=== PATIENT | female | born 1950 | race American Indian/Alaskan Native ===

== ENCOUNTER 2016-11-19 08:55 | Outpatient (CLI) | payer MEDICARE ==
--- NOTE | 2016-11-19 09:53 | Mammography Report ---
Bilateral mammogram: No previous studies are available. CAD study utilized. Findings: Predominance of adipose tissue bilaterally. No mass or microcalcification. Benign axillary nodes. Impression: Benign findings. Annual followup recommended. BI-RADS CATEGORY: 2 = Benign ACR BI-RADS MAMMOGRAPHIC CODES: 0 = Needs additional imaging evaluation; 1 = Negative; 2 = Benign; 3 = Probably benign; 4 = Suspicious; 5 = Malignant; 6 = Known biopsy-proven malignancy COMMENT: 1. Dense breast tissue, i.e., adenosis, fibrocystic changes, etc., may obscure an underlying neoplasm. 2. Approximately 10% of cancers are not detected with mammography. 3. A negative mammography report should not delay biopsy if a clinically suspicious mass is present. COMMENT: Patient follow-up letters are generated in [employer].
== END 2016-11-19 08:56 | disposition home or self-care (01) ==
LOC: MAMMO 08:55
PROVIDERS: ATTEND Internal Medicine
DX: Z12.31 Encounter for screening mammogram for malignant neoplasm of breast (principal)
CPT/HCPCS: 77067; G0202

== ENCOUNTER 2019-10-12 09:01 | Outpatient (CLI) | payer MEDICARE ==
--- NOTE | 2019-10-12 09:47 | XRay Report ---
THORACIC SPINE 4 VIEWS INDICATION / CLINICAL INFORMATION: MID BACK PAIN ON RIGHT SIDE M54.9. COMPARISON: None available. FINDINGS: VERTEBRAE: No fracture. No significant malalignment. 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 IMPRESSION: 1. No significant abnormality. Signer Name: Riki Angeles MD Signed: 10/12/2019 9:43 AM Workstation Name: [id number]
== END 2019-10-12 09:02 | disposition home or self-care (01) ==
LOC: SPVIMAG 09:01
PROVIDERS: ATTEND Internal Medicine
DX: M47.814 Spondylosis without myelopathy or radiculopathy, thoracic region (principal)
CPT/HCPCS: 72072